=== PATIENT | male | born 1965 | race American Indian/Alaskan Native ===

== ENCOUNTER 2016-07-23 18:42 | Inpatient (IN) | payer SELFPAY ==
--- NOTE | 2016-07-23 19:30 | Emergency Department Report ---
Chief Complaint: Hyperglycemia Stated Complaint: ELEVATED BLOOD SUGAR Time Seen by Provider: 07/23/16 19:30 - HPI History of Present Illness: Patient here reports that his blood sugar was reading high at home today. He is complaining of feeling weak times one week. Complaining of bilateral flank pain .complaining of blurred vision and increased thirst , frequent urination. Denies any nausea vomiting. Patient is on metformin and insulin. - ROS Review of Systems: All systems are negative unless stated in HPI above. - Exam Vital Signs: Vital Signs 07/23/16 18:50 Temperature 98.1 F Pulse Rate 106 H Respiratory 20 Rate Blood Pressure 139/97 O2 Sat by Pulse 100 Oximetry Physical Exam: General: 51 year-old male well-nourished well-developed in no acute distress. CV: S1, S2. Tachycardic at 106, Regular rhythm. Lungs:CTAB. NL work of breathing MSE screening note: Focused history and physical exam performed. Due to findings the following was ordered:see mdm ED Medical Decision Making - Medical Decision Making Medical decision making: Patient seen by provider in triage area. Appropriate protocol activated and patient to main ED to be seen by physician. ED Disposition for MSE Condition: Stable
[2016-07-23 19:57] LABS: Basophils % (Auto) 0.8 % (0.0-1.8); Eosinophils % (Auto) 1.1 % (0.0-4.3); Hematocrit 55.2 % (35.5-45.6); Hemoglobin 17.7 gm/dl (11.8-15.2); Mean Corpuscular HGB Conc 32 % (32-34); Mean Corpuscular Hemoglobin 24 pg (28-32); Mean Corpuscular Volume 75 fl (84-94); Platelet Count 280 K/mm3 (140-440); Red Blood Count 7.35 M/mm3 (3.65-5.03); White Blood Count 10.5 K/mm3 (4.5-11.0)
[2016-07-23 20:09] LABS: Bilirubin,Urine NEG (Negative); Blood,Urine SM (Negative); Ketones,Urine 80 mg/dL (Negative); Leukocyte Esterase,Urine NEG (Negative); Mucus,Urine FEW /HPF; Nitrite,Urine NEG (Negative); Urobilinogen,Urine < 2.0 mg/dL (<2.0)
[2016-07-23 20:19] LABS: Anion Gap 37 mmol/L; Blood Urea Nitrogen 18 mg/dL (9-20); Calcium 9.8 mg/dL (8.4-10.2); Carbon Dioxide 11 mmol/L (22-30); Chloride 94.3 mmol/L (98-107); Glucose 380 mg/dL (75-100); Potassium 5.1 mmol/L (3.6-5.0); Sodium 137 mmol/L (137-145)
[2016-07-23 20:34] LABS: B-Hydroxybutyrate 89.4 mg/dL (0.2-2.8)
--- NOTE | 2016-07-23 21:02 | Emergency Department Report ---
ED General Adult HPI - General Chief complaint: Hyperglycemia Stated complaint: ELEVATED BLOOD SUGAR Time Seen by Provider: 07/23/16 19:30 Source: patient Mode of arrival: Ambulatory Limitations: No Limitations - History of Present Illness Initial comments: Patient presents to the emergency department for evaluation of elevated blood sugar. He is a poor historian. He states he gave himself 5 units of NovoLog with a flexed pain in this morning as well as Levemir year last night. He may have given himself another dose of the Levemir today. He states he's had some left flank pain but no dysuria. He does not complain of abdominal pain is not currently nauseated. He states he knows he is at [facility]. He denies previous hospitalizations for his diabetes. He states he has been on insulin for less than a year. He states he's had some chills but no fever over the last few days. -: Gradual, days(s) Location: left (flank) Radiation: non-radiation Quality: aching Consistency: intermittent Improves with: none Worsens with: none Associated Symptoms: denies other symptoms Treatments Prior to Arrival: none - Related Data Home Medications Medication Instructions Recorded Confirmed Last Taken Insulin Aspart [NovoLOG Flexpen] 5 units SQ AC 06/18/16 06/18/16 06/17/16 Insulin Detemir [Levemir Flextouch] 10 units SQ AMHY 06/18/16 06/18/16 06/18/16 amLODIPine [Norvasc] 5 mg PO DAILY 06/18/16 06/18/16 06/18/16 Previous Rx's Medication Instructions Recorded Last Taken Type metFORMIN [Glucophage] 500 mg PO BID #60 tablet 06/18/16 Unknown Rx Allergies Allergy/AdvReac Type Severity Reaction Status Date / Time No Known Allergies Allergy Verified 07/23/16 18:55 ED Review of Systems ROS: Stated complaint: ELEVATED BLOOD SUGAR Other details as noted in HPI Constitutional: denies: chills, fever Eyes: denies: eye pain, eye discharge, vision change ENT: denies: ear pain, throat pain Respiratory: denies: cough, shortness of breath, wheezing Cardiovascular: denies: chest pain, palpitations Endocrine: see HPI, increased thirst Gastrointestinal: denies: abdominal pain, nausea, diarrhea Genitourinary: denies: urgency, dysuria Musculoskeletal: denies: back pain, joint swelling, arthralgia Skin: denies: rash, lesions Neurological: denies: headache, weakness, paresthesias Psychiatric: denies: anxiety, depression Hematological/Lymphatic: denies: easy bleeding, easy bruising ED Past Medical Hx - Past Medical History Hx Diabetes: Yes - Surgical History Past Surgical History?: No - Social History Smoking Status: Never Smoker Substance Use Type: None - Medications Home Medications: Home Medications Medication Instructions Recorded Confirmed Last Taken Type Insulin Aspart [NovoLOG Flexpen] 5 units SQ AC 06/18/16 06/18/16 06/17/16 History Insulin Detemir [Levemir Flextouch] 10 units SQ AMHY 06/18/16 06/18/16 06/18/16 History amLODIPine [Norvasc] 5 mg PO DAILY 06/18/16 06/18/16 06/18/16 History metFORMIN [Glucophage] 500 mg PO BID #60 tablet 06/18/16 Unknown Rx ED Physical Exam - General Limitations: No Limitations General appearance: cachectic - Head Head exam: Present: atraumatic, normocephalic - Eye Eye exam: Present: normal appearance. Absent: scleral icterus - ENT ENT exam: Present: mucous membranes moist - Neck Neck exam: Present: normal inspection - Respiratory Respiratory exam: Present: normal lung sounds bilaterally. Absent: respiratory distress - Cardiovascular Cardiovascular Exam: Present: regular rate, normal rhythm. Absent: systolic murmur, diastolic murmur, rubs, gallop - GI/Abdominal GI/Abdominal exam: Present: soft, normal bowel sounds. Absent: distended, tenderness, guarding, rebound, rigid - Rectal Rectal exam: Present: deferred - Extremities Exam Extremities exam: Present: normal inspection - Back Exam Back exam: Absent: tenderness, CVA tenderness (R), CVA tenderness (L) - Neurological Exam Neurological exam: Present: alert, oriented X3, CN II-XII intact. Absent: motor sensory deficit - Psychiatric Psychiatric exam: Present: normal affect, normal mood - Skin Skin exam: Present: warm, dry, intact, normal color. Absent: rash ED Course Vital Signs 07/23/16 07/23/16 07/23/16 18:50 21:46 21:47 Temperature 98.1 F Pulse Rate 106 H 94 H Respiratory 20 20 23 Rate Blood Pressure 139/97 O2 Sat by Pulse 100 99 Oximetry - Reevaluation(s) Reevaluation #1: 2 L bolus. Insulin drip. Patient admitted for DKA to hospitalist service. 07/23/16 21:59 ED Medical Decision Making - Lab Data Result diagrams: 07/23/16 19:46 07/23/16 19:46 Laboratory Results - last 24 hr 07/23/16 07/23/16 07/23/16 19:02 19:46 19:46 WBC 10.5 RBC 7.35 H Hgb 17.7 H Hct 55.2 H MCV 75 L MCH 24 L MCHC 32 RDW 15.0 Plt Count 280 Lymph % (Auto) 24.8 [place] % (Auto) 6.5 Eos % (Auto) 1.1 Baso % (Auto) 0.8 Lymph # 2.6 Pope # 0.7 Eos # 0.1 Baso # 0.1 Seg Neutrophils % 66.8 Seg Neutrophils # 7.0 VBG pH Sodium 137 Potassium 5.1 H Chloride 94.3 L Carbon Dioxide 11 L Anion Gap 37 BUN 18 Creatinine 1.2 Estimated GFR > 60 BUN/Creatinine Ratio 15.00 Glucose 380 H POC Glucose 316 H Calcium 9.8 Urine Color Urine Turbidity Urine pH Ur Specific [place] Urine Protein Urine Glucose (UA) Urine Ketones Urine Blood Urine Nitrite Urine Bilirubin Urine Urobilinogen Ur Leukocyte Esterase Urine WBC (Auto) Urine RBC (Auto) U Epithel Cells (Auto) Urine Mucus Ketones 89.4 H 07/23/16 07/23/16 19:46 19:48 WBC RBC Hgb Hct MCV MCH MCHC RDW Plt Count Lymph % (Auto) [place] % (Auto) Eos % (Auto) Baso % (Auto) Lymph # Pope # Eos # Baso # Seg Neutrophils % Seg Neutrophils # VBG pH 7.192 L* Sodium Potassium Chloride Carbon Dioxide Anion Gap BUN Creatinine Estimated GFR BUN/Creatinine Ratio Glucose POC Glucose Calcium Urine Color Yellow Urine Turbidity Clear Urine pH 5.0 Ur Specific [place] 1.018 Urine Protein 30 mg/dl Urine Glucose (UA) >=500 Urine Ketones 80 Urine Blood Sm Urine Nitrite Neg Urine Bilirubin Neg Urine Urobilinogen < 2.0 Ur Leukocyte Esterase Neg Urine WBC (Auto) 1.0 Urine RBC (Auto) 1.0 U Epithel Cells (Auto) < 1.0 Urine Mucus Few Ketones Critical care attestation.: If time is entered above; I have spent that time in minutes in the direct care of this critically ill patient, excluding procedure time. ED Disposition Clinical Impression: DKA, type 1 Qualifiers: Diabetes mellitus complication detail: without coma Qualified Code(s): E10.10 - Type 1 diabetes mellitus with ketoacidosis without coma Disposition: OP ADMITTED IP TO THIS HOSP Is pt being admited?: Yes Does the pt Need Aspirin: No Condition: Stable Instructions: Diabetes Mellitus Type 2 in Adults (ED) Time of Disposition: 22:02
[2016-07-23] MEDS ORDERED: NACL 0.9% 1000 ML 2,000 ML IV ONE (21:03)
[2016-07-23] MEDS ORDERED: D50W (25GM) IV PRN ×2 (21:04→23:47)
[2016-07-23] MEDS ORDERED: NovoLIN R 100 UNITS in NACL 0.9% 99 ML IV SCH (22:00)
[2016-07-23 22:14] LABS: Magnesium 2.1 mg/dL (1.7-2.3); Phosphorous 4.3 mg/dL (2.5-4.5)
[2016-07-23 22:24] LABS: Carbon Dioxide TNR mmol/L (22-30); Chloride TNR mmol/L (98-107); Potassium TNR mmol/L (3.6-5.0); Sodium TNR mmol/L (137-145)
[2016-07-23 22:25] LABS: Anion Gap TNR mmol/L; BUN/Creatinine Ratio TNR; Blood Urea Nitrogen TNR mg/dL (9-20); Calcium TNR mg/dL (8.4-10.2); Glucose TNR mg/dL (75-100)
[2016-07-23 23:06] LABS: Urine Drugs of Abuse Note Disclamer
[2016-07-23 23:31] LABS: BUN/Creatinine Ratio 13.33; Blood Urea Nitrogen 16 mg/dL (9-20); Calcium 8.7 mg/dL (8.4-10.2); Carbon Dioxide 12 mmol/L (22-30); Chloride 101.3 mmol/L (98-107); Glucose 289 mg/dL (75-100); Potassium 5.1 mmol/L (3.6-5.0); Sodium 139 mmol/L (137-145)
[2016-07-23 23:35] LABS: Alanine Aminotransferase 10 units/L (7-56); Albumin 3.9 g/dL (3.9-5); Albumin/Globulin Ratio 1.3 %; Alkaline Phosphatase 99 units/L (35-129); Bilirubin,Total 0.3 mg/dL (0.1-1.2); Total Protein 6.9 g/dL (6.3-8.2)
[2016-07-23 23:45] LABS: Anion Gap 31 mmol/L
[2016-07-23 23:45] LABS: Bilirubin,Direct < 0.2 mg/dL (0-0.2); Bilirubin,Indirect 0.1 mg/dL
[2016-07-23] MEDS ORDERED: D5W/0.45% NACL/KCL 20 MEQ 1,000 ML IV SCH (23:45)
[2016-07-23] MEDS ORDERED: NACL 0.45% 1000 ML 1,000 ML IV SCH (23:45)
[2016-07-23] MEDS ORDERED: TYLENOL PO PRN (23:45)
--- NOTE | 2016-07-23 23:45 | History and Physical Report ---
History of Present Illness Chief complaint: high blood sugar History of present illness: 51 YO Male with DM, presents to ED for evaluation. Pt states that he has experienced high blood sugars for the past 2 weeks. Pt acknowledges polydipsia, polyuria, and polyphagia. Pt denies fever, chills, CP, Palpitations, Syncope, Trauma, Leg Pain, Calf pain, Dypsnea, or recent ill contacts. Pt acknowledges noncompliance with Diabetic diet. Past History Past Medical History: diabetes Past Surgical History: No surgical history, Other (reviewed) Social history: no significant social history. denies: smoking, alcohol abuse Family history: diabetes, hypertension Medications and Allergies Allergies Allergy/AdvReac Type Severity Reaction Status Date / Time No Known Allergies Allergy Verified 07/23/16 18:55 Home Medications Medication Instructions Recorded Confirmed Last Taken Type Insulin Aspart [NovoLOG Flexpen] 5 units SQ TID 06/18/16 07/23/16 06/17/16 History Insulin Detemir [Levemir Flextouch] 10 units SQ QPM 06/18/16 07/23/16 06/18/16 History amLODIPine [Norvasc] 5 mg PO DAILY 06/18/16 07/24/16 06/18/16 History metFORMIN [Glucophage] 500 mg PO BID #60 tablet 06/18/16 07/23/16 Unknown Rx Active Meds: Active Medications Dextrose (D50w (25gm)) 0 ml IV ONCE PRN PRN Reason: Hypoglycemia Insulin Human Regular 100 (units/ Sodium Chloride) 100 mls @ 1 mls/hr IV TITR CARMELA; 1 UNITS/HR PRN Reason: Protocol Last Titration: 07/23/16 22:45 Dose: 6 units/hr Review of Systems All systems: negative Endocrine: polyphagia, polydipsia, polyuria Exam - Constitutional Vitals: Temp Pulse Resp BP Pulse Ox 98.1 F 94 H 23 139/97 99 07/23/16 18:50 07/23/16 21:47 07/23/16 21:47 07/23/16 18:50 07/23/16 21:47 General appearance: Present: no acute distress, well-nourished - EENT Eyes: Present: PERRL ENT: hearing intact, clear oral mucosa - Neck Neck: Present: supple, normal ROM - Respiratory Respiratory effort: normal Respiratory: bilateral: CTA - Cardiovascular Heart Sounds: Present: S1 & S2. Absent: rub, click - Extremities Extremities: pulses symmetrical, No edema Peripheral Pulses: within normal limits - Abdominal General gastrointestinal: Present: soft, non-tender, non-distended, normal bowel sounds Male genitourinary: Present: normal - Integumentary Integumentary: Present: clear, warm, dry - Musculoskeletal Musculoskeletal: gait normal, strength equal bilaterally - Psychiatric Psychiatric: appropriate mood/affect, intact judgment & insight - Neurologic Neurologic: CNII-XII intact, moves all extremities Results - Labs CBC & Chem 7: 07/23/16 19:46 07/24/16 03:26 Labs: Abnormal lab results 07/23/16 07/23/16 07/23/16 Range/Units 19:02 19:46 19:46 RBC 7.35 H (3.65-5.03) M/mm3 Hgb 17.7 H (11.8-15.2) gm/dl Hct 55.2 H (35.5-45.6) % MCV 75 L (84-94) fl MCH 24 L (28-32) pg VBG pH (7.320-7.420) Potassium 5.1 H (3.6-5.0) mmol/L Chloride 94.3 L (98-107) mmol/L Carbon Dioxide 11 L (22-30) mmol/L Glucose 380 H (75-100) mg/dL POC Glucose 316 H (70-105) Ketones 89.4 H (0.2-2.8) mg/dL 07/23/16 07/23/16 07/23/16 Range/Units 19:46 21:36 22:43 RBC (3.65-5.03) M/mm3 Hgb (11.8-15.2) gm/dl Hct (35.5-45.6) % MCV (84-94) fl MCH (28-32) pg VBG pH 7.192 L* (7.320-7.420) Potassium (3.6-5.0) mmol/L Chloride (98-107) mmol/L Carbon Dioxide (22-30) mmol/L Glucose (75-100) mg/dL POC Glucose 343 H 302 H (70-105) Ketones (0.2-2.8) mg/dL 07/23/16 Range/Units 22:59 RBC (3.65-5.03) M/mm3 Hgb (11.8-15.2) gm/dl Hct (35.5-45.6) % MCV (84-94) fl MCH (28-32) pg VBG pH (7.320-7.420) Potassium 5.1 H (3.6-5.0) mmol/L Chloride (98-107) mmol/L Carbon Dioxide 12 L (22-30) mmol/L Glucose 289 H (75-100) mg/dL POC Glucose (70-105) Ketones (0.2-2.8) mg/dL Assessment and Plan - Patient Problems (1) DKA, type 1 Current Visit: Yes Status: Acute Qualifiers: Diabetes mellitus complication detail: without coma Qualified Code(s): E10.10 - Type 1 diabetes mellitus with ketoacidosis without coma Plan to address problem: Pt treated with DKA protocol, Insulin drip, SSI, IVF, supportive care, and monitoring of anion gap. Pt admitted to ICU, Pt downgraded in ED to medical floor. The high probability of a clinically significant, sudden or life threatening deterioration of the [Endocrine, renal, ] system(s) required my full and direct attention, intervention and personal management. The aggregate critical care time was [65] minutes. This time is in addition to time spent performing reported procedures but includes the following: [x] Data Review and interpretation [x] Patient assessment and monitoring of vital signs [x] Documentation [x] Medication orders and management (2) Metabolic acidosis Current Visit: Yes Status: Acute Plan to address problem: Treat DKA, IVF, supportive care, monitor uop q shift, (3) Noncompliance Current Visit: Yes Status: Acute Plan to address problem: Pt counseled regarding diabetic diet, carbohydrate counting, (4) DVT prophylaxis Current Visit: Yes Status: Acute
[2016-07-24 01:49] LABS: BUN/Creatinine Ratio 15.55; Blood Urea Nitrogen 14 mg/dL (9-20); Calcium 8.7 mg/dL (8.4-10.2); Carbon Dioxide 12 mmol/L (22-30); Chloride 104.4 mmol/L (98-107); Glucose 225 mg/dL (75-100); Potassium 4.5 mmol/L (3.6-5.0); Sodium 140 mmol/L (137-145)
[2016-07-24 01:51] LABS: Anion Gap 28 mmol/L
[2016-07-24] MEDS: NOVOLOG SUB-Q SCH ×8 (02:22→23:17)
[2016-07-24 04:05] LABS: Blood Urea Nitrogen 14 mg/dL (9-20); Calcium 8.6 mg/dL (8.4-10.2); Carbon Dioxide 12 mmol/L (22-30); Chloride 103.2 mmol/L (98-107); Glucose 252 mg/dL (75-100); Potassium 4.6 mmol/L (3.6-5.0); Sodium 140 mmol/L (137-145)
[2016-07-24 04:10] LABS: Anion Gap 29 mmol/L
[2016-07-24 06:17] LABS: BUN/Creatinine Ratio 14.44; Blood Urea Nitrogen 13 mg/dL (9-20); Calcium 8.7 mg/dL (8.4-10.2); Carbon Dioxide 12 mmol/L (22-30); Chloride 104.4 mmol/L (98-107); Glucose 251 mg/dL (75-100); Potassium 4.3 mmol/L (3.6-5.0); Sodium 139 mmol/L (137-145)
[2016-07-24 06:19] LABS: Anion Gap 27 mmol/L
--- NOTE | 2016-07-24 07:53 | XRay Report ---
CHEST ONE VIEW INDICATION: Hypertension. COMPARISON: None similar at this institution. FINDINGS: Portable, single, frontal chest radiograph demonstrates normal cardiomediastinal silhouette. Clear lungs. Mild thoracic dextrocurvature. Left AC joint degenerative spurring. Extrinsic EKG leads. CONCLUSION: No acute disease in the chest. Thank you for the opportunity to participate in this patient's care.
[2016-07-24] MEDS ORDERED: NON-FORMULARY (Insulin Aspart [Novolog Flexpen] 5 UNITS) SQ SCH (08:00)
--- NOTE | 2016-07-24 08:07 | Admit Criteria Form ---
Admission Criteria Documentation: DIABETES Clinical Indications for Admission to Inpatient Care (Place 'X' for any and all applicable criteria): Admission is indicated by presence of ALL (if I & II) or ANY ONE (if III or IV) of the following (1)(2)(3)(4): [ X]I. Diabetes is uncontrolled as indicated by ANY ONE of the following: [ X]a) Diabetic ketoacidosis as indicated by ALL of the following (8): [X ]i) Hyperglycemia (eg, plasma glucose greater than 200 mg /dL (11.1 mmol/L)) [X ]ii) Acidosis (eg, arterial pH less than 7.30, serum bicarbonate level less than 15 mEq/L (mmol/L)) [X ]iii) Moderate ketonuria or ketonemia [ ]b) Hyperglycemic hyperosmolar state as indicated by ALL of the following(9)(10): [ ]i) Neurologic dysfunction (eg, stupor, coma, hemiparesis , seizure)(13) [ ]ii) Plasma glucose greater than 600 mg/dL (33.3 mmol/L) [ ]iii) Serum osmolality greater than 320 mOsm/kg (mmol/kg) [ ]c) Severe signs or symptoms secondary to hyperglycemia indicated by ANY ONE of the following: [ ]i) Altered mental status(10) [ ]ii) Significant hypovolemia or dehydration [ ]iii) Intractable nausea or vomiting [ ]iv) Unexplained fever or severe infection [ ]v) Severe electrolyte abnormality (eg, hypokalemia, hyperkalemia, hypernatremia) [ ]II. Management at other levels of care (Also use Diabetes: Observation Care as appropriate) is not feasible because of ANY ONE of the following: [ ]a) Condition was not adequately corrected with treatment at other levels of care. [ ]b) Treatment at other levels of care is not appropriate because of condition severity (eg, hyperosmolar coma). [ ]III. Contraindications and/or Inappropriate clinical situations for Observational Care in patients with Diabetes, when ANY ONE of the following is required: [ ]a) Patient require specific diagnostic workup or therapeutic intervention 22 [ ]b) Patient with abnormal vital signs or altered mental status 23 [ ]IV. General contraindications and/or Inappropriate clinical situations for Observational Care in patients with Diabetes, when ANY ONE of the following is required: [ ]a) Prediction of prolongation of LOS based on ANY ONE of the following may be considered as a contraindication for observational care 2, 3, 4, 5, 6, 7, 8, 9, 10, 11 [ ]i) Age > 65 yrs. [ ]ii) Patient arriving by ambulance [ ]iii) Patient with high acuity [ ]iv) Patient requiring vital sign monitoring [ ]v) Patient on IV medication [ ]b) Systolic blood pressures 180mmHg 3,12 [ ]c) Patient with altered mental status including delirium and other alteration of consciousness, (3) [ ]d) Patient whose discharge disposition will be to a intermediate home or rehabilitation home should not be managed in Emergency Department Observation Unit. CMS rule requires 3 days hospital stay before such placement.3,13 [ ]e) Patient with failure to thrive due to broad array of etiologies 3,16,17 [ ]f) Inability to ambulate 3,14 Extended stay beyond goal length of stay may be needed for(3)(20): [ ]a) Treatment of precipitating causes [ ]b) Development of hypoglycemia [ ]c) Complications of treatment [ ]d) Complications of decompensated diabetes (eg, acute gastric dilatation, persistent metabolic or neurologic derangement) [ ]e) Active Comorbidities [ ]f) Older patients( 65 years or older) The original [employer] content created by [employer] has been revised. The portions of the content which have been revised are identified through the use of italic text or in bold,and [facility] has neither reviewed nor approved the modified material. All other unmodified content is copyright [employer]. Please see references footnoted in the original [employer] edition 2016 Admission Criteria Met: Yes
[2016-07-24] MEDS: NORVASC PO SCH (10:25)
--- NOTE | 2016-07-24 13:15 | Progress Note ---
Assessment and Plan Assessment and plan: Diabetic ketoacidosis. He was initially to be in admitted to ICU with good downgraded as no on medical floor. Her glucose still uncontrolled. Increase NovoLog to 8 units subcutaneous QAC, and increase Levemir to 20 units subcutaneous QHS. He is still acidotic bicarbonate level of 12. Will start on bicarbonate drip and recheck BMP. Diabetic mellitus type II. DVT prophylaxis with Heparin subcut. Full CODE STATUS History Interval history: feels better, Less polyuria Hospitalist Physical - Physical exam Narrative exam: Gen: Not in acute distress HEENT: Normocephalic, atraumatic Neck :supple, no JVD Lungs: Clear to auscultation bilaterally, no crackles or wheeze. Heart: S1 and S2 regular, no murmurs no gallop Abdomen:soft, non-tender, non-distended, normal bowel sounds Ext: No edema, no clubbing or cyanosis Neuro: Awake alert oriented x 3 - Constitutional Vitals: Temp Pulse Resp BP Pulse Ox 97 F L 74 16 118/75 97 07/24/16 08:00 07/24/16 08:00 07/24/16 08:00 07/24/16 08:00 07/24/16 09:20 General appearance: Present: no acute distress, well-nourished Results - Labs CBC & Chem 7: 07/23/16 19:46 07/24/16 12:59 Labs: Laboratory Last Values WBC 10.5 K/mm3 (4.5-11.0) 07/23/16 19:46 RBC 7.35 M/mm3 (3.65-5.03) H 07/23/16 19:46 Hgb 17.7 gm/dl (11.8-15.2) H 07/23/16 19:46 Hct 55.2 % (35.5-45.6) H 07/23/16 19:46 MCV 75 fl (84-94) L 07/23/16 19:46 MCH 24 pg (28-32) L 07/23/16 19:46 MCHC 32 % (32-34) 07/23/16 19:46 RDW 15.0 % (13.2-15.2) 07/23/16 19:46 Plt Count 280 K/mm3 (140-440) 07/23/16 19:46 Lymph % (Auto) 24.8 % (13.4-35.0) 07/23/16 19:46 [place] % (Auto) 6.5 % (0.0-7.3) 07/23/16 19:46 Eos % (Auto) 1.1 % (0.0-4.3) 07/23/16 19:46 Baso % (Auto) 0.8 % (0.0-1.8) 07/23/16 19:46 Lymph # 2.6 K/mm3 (1.2-5.4) 07/23/16 19:46 [place] # 0.7 K/mm3 (0.0-0.8) 07/23/16 19:46 Eos # 0.1 K/mm3 (0.0-0.4) 07/23/16 19:46 Baso # 0.1 K/mm3 (0.0-0.1) 07/23/16 19:46 Seg Neutrophils % 66.8 % (40.0-70.0) 07/23/16 19:46 Seg Neutrophils # 7.0 K/mm3 (1.8-7.7) 07/23/16 19:46 VBG pH 7.192 (7.320-7.420) L* 07/23/16 19:46 Sodium 139 mmol/L (137-145) 07/24/16 05:27 Potassium 4.3 mmol/L (3.6-5.0) 07/24/16 05:27 Chloride 104.4 mmol/L (98-107) 07/24/16 05:27 Carbon Dioxide 12 mmol/L (22-30) L 07/24/16 05:27 Anion Gap 27 mmol/L 07/24/16 05:27 BUN 13 mg/dL (9-20) 07/24/16 05:27 Creatinine 0.9 mg/dL (0.8-1.5) 07/24/16 05:27 Estimated GFR > 60 ml/min 07/24/16 05:27 BUN/Creatinine Ratio 14.44 % 07/24/16 05:27 Glucose 251 mg/dL (75-100) H 07/24/16 05:27 POC Glucose 260 (70-105) H 07/24/16 11:27 Hemoglobin A1c 15.0 % (4-6) H 07/23/16 23:59 Calcium 8.7 mg/dL (8.4-10.2) 07/24/16 05:27 Phosphorus 4.3 mg/dL (2.5-4.5) 07/23/16 21:39 Magnesium 2.1 mg/dL (1.7-2.3) 07/23/16 21:39 Total Bilirubin 0.3 mg/dL (0.1-1.2) 07/23/16 22:01 Direct Bilirubin < 0.2 mg/dL (0-0.2) 07/23/16 22:01 Indirect Bilirubin 0.1 mg/dL 07/23/16 22:01 AST 6 units/L (5-40) 07/23/16 22:01 ALT 10 units/L (7-56) 07/23/16 22:01 Alkaline Phosphatase 99 units/L (35-129) 07/23/16 22:01 Total Protein 6.9 g/dL (6.3-8.2) 07/23/16 22:01 Albumin 3.9 g/dL (3.9-5) 07/23/16 22:01 Albumin/Globulin Ratio 1.3 % 07/23/16 22:01 Urine Color Yellow (Yellow) 07/23/16 19:48 Urine Turbidity Clear (Clear) 07/23/16 19:48 Urine pH 5.0 (5.0-7.0) 07/23/16 19:48 Ur Specific [place] 1.018 (1.003-1.030) 07/23/16 19:48 Urine Protein 30 mg/dl mg/dL (Negative) 07/23/16 19:48 Urine Glucose (UA) >=500 mg/dL (Negative) 07/23/16 19:48 Urine Ketones 80 mg/dL (Negative) 07/23/16 19:48 Urine Blood Sm (Negative) 07/23/16 19:48 Urine Nitrite Neg (Negative) 07/23/16 19:48 Urine Bilirubin Neg (Negative) 07/23/16 19:48 Urine Urobilinogen < 2.0 mg/dL (<2.0) 07/23/16 19:48 Ur Leukocyte Esterase Neg (Negative) 07/23/16 19:48 Urine WBC (Auto) 1.0 /HPF (0.0-6.0) 07/23/16 19:48 Urine RBC (Auto) 1.0 /HPF (0.0-6.0) 07/23/16 19:48 U Epithel Cells (Auto) < 1.0 /HPF (0-13.0) 07/23/16 19:48 Urine Mucus Few /HPF 07/23/16 19:48 Urine Opiates Screen Presumptive negative 07/23/16 22:47 Urine Methadone Screen Presumptive negative 07/23/16 22:47 Ur Barbiturates Screen Presumptive negative 07/23/16 22:47 Ur Phencyclidine Scrn Presumptive negative 07/23/16 22:47 Ur Amphetamines Screen Presumptive negative 07/23/16 22:47 U Benzodiazepines Scrn Presumptive negative 07/23/16 22:47 Urine Cocaine Screen Presumptive negative 07/23/16 22:47 U Marijuana (THC) Screen Presumptive negative 07/23/16 22:47 Drugs of Abuse Note Disclamer 07/23/16 22:47 Ketones 89.4 mg/dL (0.2-2.8) H 07/23/16 19:46
[2016-07-24 13:30] LABS: BUN/Creatinine Ratio 15.55; Blood Urea Nitrogen 14 mg/dL (9-20); Calcium 9.2 mg/dL (8.4-10.2); Carbon Dioxide 18 mmol/L (22-30); Glucose 212 mg/dL (75-100); Potassium 4.1 mmol/L (3.6-5.0); Sodium 137 mmol/L (137-145)
[2016-07-24 13:32] LABS: Anion Gap 20 mmol/L
[2016-07-24] MEDS ORDERED: NACL 0.45% IV SCH (15:00)
[2016-07-24] MEDS ORDERED: SODIUM BICARBONATE IV SCH (15:00)
[2016-07-24] MEDS ORDERED: LEVEMIR SUB-Q SCH ×2 (18:00)
[2016-07-24] MEDS ORDERED: INSULIN DETEMIR 10 UNIT SQ SCH (18:00)
[2016-07-24 21:37] LABS: BUN/Creatinine Ratio 16.25; Blood Urea Nitrogen 13 mg/dL (9-20); Calcium 8.6 mg/dL (8.4-10.2); Carbon Dioxide 19 mmol/L (22-30); Chloride 100.5 mmol/L (98-107); Glucose 383 mg/dL (75-100); Potassium 3.7 mmol/L (3.6-5.0); Sodium 135 mmol/L (137-145)
[2016-07-24 21:45] LABS: Anion Gap 19 mmol/L
[2016-07-24] MEDS: HEPARIN SUB-Q SCH (23:18)
[2016-07-25 05:40] LABS: Hematocrit 44.5 % (35.5-45.6); Hemoglobin 14.7 gm/dl (11.8-15.2); Mean Corpuscular HGB Conc 33 % (32-34); Mean Corpuscular Volume 73 fl (84-94); Platelet Count 190 K/mm3 (140-440); Red Blood Count 6.08 M/mm3 (3.65-5.03); Red Cell Distribution Width 14.7 % (13.2-15.2); White Blood Count 7.2 K/mm3 (4.5-11.0)
[2016-07-25 06:01] LABS: BUN/Creatinine Ratio 16.66; Blood Urea Nitrogen 10 mg/dL (9-20); Calcium 8.6 mg/dL (8.4-10.2); Carbon Dioxide 23 mmol/L (22-30); Chloride 103.5 mmol/L (98-107); Glucose 85 mg/dL (75-100); Sodium 140 mmol/L (137-145)
[2016-07-25 06:04] LABS: Mean Corpuscular Hemoglobin 24 pg (28-32)
[2016-07-25 06:21] LABS: Anion Gap 16 mmol/L
[2016-07-25 06:22] LABS: Potassium 2.8 mmol/L (3.6-5.0)
[2016-07-25] MEDS: HEPARIN SUB-Q SCH ×2 (06:48→13:00)
[2016-07-25] MEDS: NOVOLOG SUB-Q SCH ×6 (07:51→16:04)
[2016-07-25] MEDS ORDERED: NACL 0.9% 500 ML 500 ML IV SCH (09:37)
[2016-07-25] MEDS ORDERED: NACL 0.9% 1000 ML 1,000 ML ONE (09:37)
[2016-07-25 09:53] VITALS: BP 116/71
[2016-07-25] MEDS: K-DUR PO SCH ×2 (09:54→12:50)
[2016-07-25] MEDS: NORVASC PO SCH (09:54)
[2016-07-25] MEDS: KCL 10MEQ/100ML 100 ML IV SCH ×2 (10:46→11:45)
--- NOTE | 2016-07-25 10:58 | Discharge Summary ---
Providers - Providers Date of Admission: 07/23/16 23:45 Date of discharge: 07/25/16 Attending physician: KEO DEE Primary care physician: MICHAEL PALMER MD Hospitalization Condition: Good Disposition: DISCHARGED TO HOME OR SELFCARE - Discharge Diagnoses (1) DKA (diabetic ketoacidoses) Status: Acute Core Measure Documentation - Palliative Care Palliative Care/ Comfort Measures: Not Applicable - Core Measures Any of the following diagnoses?: none Exam - Constitutional Vitals: Temp Pulse Resp BP Pulse Ox 98.5 F 90 18 116/71 100 07/25/16 09:52 07/25/16 09:54 07/25/16 09:52 07/25/16 09:54 07/25/16 09:52 Plan Activity: no restrictions Diet: diabetic Additional Instructions: 1.Follow up with PCP or [facility] in 1 week Follow up with: PRIMARY CARE, [Primary Care Provider] - 3-5 Days Prescriptions: Insulin Aspart [NovoLOG Flexpen] 8 units SQ AC #1 pen Insulin Detemir [Levemir Flextouch] 20 unit SQ QHS #1 pen
[2016-07-25 14:15] LABS: Anion Gap 18 mmol/L; BUN/Creatinine Ratio 14.28; Blood Urea Nitrogen 10 mg/dL (9-20); Calcium 7.9 mg/dL (8.4-10.2); Carbon Dioxide 21 mmol/L (22-30); Chloride 101.7 mmol/L (98-107); Glucose 426 mg/dL (75-100); Potassium 4.6 mmol/L (3.6-5.0); Sodium 136 mmol/L (137-145)
== END 2016-07-25 17:15 | disposition home or self-care (01) | DRG 639 ==
LOC: ED 18:42 → 2B-SURG 23:45
PROVIDERS: ADMIT Internal Medicine; ATTEND Internal Medicine
DX: E10.10 Type 1 diabetes mellitus with ketoacidosis without coma (principal); I10 Essential (primary) hypertension; R73.9 Hyperglycemia, unspecified; Z91.11 Patient's noncompliance with dietary regimen; Z83.3 Family history of diabetes mellitus; Z82.49 Family history of ischemic heart disease and other diseases of the circulatory system
CPT/HCPCS: 36415; 71010; 80048; 80074; 80307; 81001; 82010; 82805; 82962; 83036; 83735; 84100; 85025; 85027; 93005; 93010; 96361; 96374; J1644; J1815; J1818; J3480; J7030

== ENCOUNTER 2017-08-18 17:11 | Emergency (ER) | payer SELFPAY ==
[2017-08-18 18:34] LABS: BUN/Creatinine Ratio 23; Blood Urea Nitrogen 23 mg/dL (9-20); Calcium 9.2 mg/dL (8.4-10.2); Hemolysis Index 5
--- NOTE | 2017-08-19 02:33 | Emergency Department Report ---
HPI - General Chief Complaint: Hyperglycemia Time Seen by Provider: 08/19/17 02:15 - HPI HPI: This is a 52-year-old male presents to the emergency department with complaint of uncontrolled diabetes. He says that he takes his metformin 500 mg twice daily, Levemir 20 units at night and NovoLog with meals. Despite compliance he says that his blood sugar has been elevated over the past month and sometimes goes as high as 500. He admits to some increased urination and increased thirst but denies any chest pain, abdominal pain, fever , nausea, vomiting. He does not currently have a primary care physician. He says that he does not eat a lot of carbs, starches or sugars. No recent travel or sick contacts at home. ED Past Medical Hx - Past Medical History Hx Hypertension: Yes Hx Diabetes: Yes - Surgical History Past Surgical History?: No - Social History Smoking Status: Never Smoker Substance Use Type: None - Medications Home Medications: Home Medications Medication Instructions Recorded Confirmed Last Taken Type amLODIPine [Norvasc] 5 mg PO DAILY 06/18/16 07/24/16 06/18/16 History metFORMIN [Glucophage] 500 mg PO BID #60 tablet 06/18/16 07/23/16 Unknown Rx Insulin Aspart [NovoLOG Flexpen] 8 units SQ AC #1 pen 07/25/16 Unknown Rx Insulin Detemir [Levemir Flextouch] 20 unit SQ QHS #1 pen 07/25/16 Unknown Rx ED Review of Systems ROS: Stated complaint: HIGH BLOOD SUGAR Other details as noted in HPI Comment: All other systems reviewed and negative Constitutional: denies: chills, fever Eyes: denies: eye pain, eye discharge, vision change ENT: denies: ear pain, throat pain Respiratory: denies: cough, shortness of breath, wheezing Cardiovascular: denies: chest pain, palpitations Endocrine: increased thirst, increased urine Gastrointestinal: denies: abdominal pain, vomiting Genitourinary: frequency. denies: dysuria Musculoskeletal: denies: back pain, joint swelling, arthralgia Skin: denies: rash, lesions Neurological: denies: headache, weakness, paresthesias Physical Exam - Physical Exam Vital Signs: Vital Signs 08/18/17 17:55 Temperature 98 F Pulse Rate 88 Respiratory 16 Rate Blood Pressure 126/86 O2 Sat by Pulse 99 Oximetry Physical Exam: GENERAL: The patient is well-developed well-nourished. HENT: Normocephalic. Atraumatic. Patient has moist mucous membranes. EYES: Extraocular motions are intact. Pupils equal reactive to light bilaterally. NECK: Supple. Trachea is midline. CHEST/LUNGS: Clear to auscultation. There is no respiratory distress noted. HEART/CARDIOVASCULAR: Regular. There is no tachycardia. There is no murmur. ABDOMEN: Abdomen is soft, nontender. Patient has normal bowel sounds. There is no abdominal distention. SKIN: Skin is warm and dry. NEURO: The patient is awake, alert, and oriented. The patient is cooperative. The patient has no focal neurologic deficits. The patient has normal speech. MUSCULOSKELETAL: There is no tenderness or deformity. There is no limitation range of motion. There is no evidence of acute injury. ED Course Vital Signs 08/18/17 17:55 Temperature 98 F Pulse Rate 88 Respiratory 16 Rate Blood Pressure 126/86 O2 Sat by Pulse 99 Oximetry ED Medical Decision Making - Lab Data Result diagrams: 08/19/17 02:30 08/19/17 02:30 - Medical Decision Making Patient presents with some elevated blood sugar. His previous records show a history of some noncompliance and diabetic ketoacidosis. However this time there is no venous acidosis and no significant anion gap elevation. His blood sugar came down from about 400-190 after a liter of IV fluid and 10 units of IV insulin. Vital signs stable throughout his ED course. He says he has his medication at home to take. He was encouraged to follow up with a primary care physician and/or medical laboratory technologist. He will return to the ER with any worsening of symptoms or any acute distress. - Differential Diagnosis DKA, HHNK, Dehydration Critical Care Time: No Critical care attestation.: If time is entered above; I have spent that time in minutes in the direct care of this critically ill patient, excluding procedure time. ED Disposition Clinical Impression: Hyperglycemia Uncontrolled diabetes mellitus Qualifiers: Diabetes mellitus type: type 1 Diabetes mellitus complication status: with hyperglycemia Qualified Code(s): E10.65 - Type 1 diabetes mellitus with hyperglycemia Disposition: DC-01 TO HOME OR SELFCARE Is pt being admited?: No Condition: Stable Instructions: Diabetic Hyperglycemia (ED) Additional Instructions: Please follow up with a primary care physician in the next few days. Try and stay away from foods that are high in carbohydrates, sugars and starches to help with your blood sugar. Keep a blood sugar log. Return to the emergency Department with any worsening of her symptoms or any acute distress. Referrals: PATRICK FIELD MD [Staff Physician] - 3-5 Days HALINA CISNEROS MD [Staff Physician] - 3-5 Days Time of Disposition: 06:00
[2017-08-19 02:51] LABS: Basophils % (Auto) 0.4 % (0.0-1.8); Eosinophils # (Auto) 0.1 K/mm3 (0.0-0.4); Eosinophils % (Auto) 2.2 % (0.0-4.3); Hematocrit 46.9 % (35.5-45.6); Hemoglobin 15.4 gm/dl (11.8-15.2); Lymphocytes # (Auto) 2.4 K/mm3 (1.2-5.4); Lymphocytes % (Auto) 37.8 % (13.4-35.0); Mean Corpuscular HGB Conc 33 % (32-34); Mean Corpuscular Volume 75 fl (84-94); Monocytes # (Auto) 0.5 K/mm3 (0.0-0.8); Monocytes % (Auto) 8.4 % (0.0-7.3); Platelet Count 221 K/mm3 (140-440); Red Blood Count 6.24 M/mm3 (3.65-5.03); Red Cell Distribution Width 13.3 % (13.2-15.2)
[2017-08-19 02:59] VITALS: BP 117/69
[2017-08-19 03:01] LABS: Mean Corpuscular Hemoglobin 25 pg (28-32)
[2017-08-19 03:02] LABS: BUN/Creatinine Ratio 20; Blood Urea Nitrogen 20 mg/dL (9-20); Calcium 9.4 mg/dL (8.4-10.2); Hemolysis Index 7
[2017-08-19] MEDS ORDERED: NACL 0.9% 1000 ML 1,000 ML IV ONE (03:08)
== END 2017-08-19 06:25 | disposition home or self-care (01) ==
LOC: ED 17:11
DX: E11.65 Type 2 diabetes mellitus with hyperglycemia (principal); I10 Essential (primary) hypertension
CPT/HCPCS: 36415; 80048; 82805; 82962; 85025; 96361; 96374; 99283; J7030; J1815